=== PATIENT | female | born 2005 ===

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

== ENCOUNTER → 2024-10-05 10:21 | Outpatient (BNV) | payer OTHER, SELFPAY ==
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
== END ==
PROVIDERS: Visit Provider Nurse Practitioner Family
DX: H92.01 Otalgia, right ear (principal); Z71.89 Other specified counseling; Z59.819 Housing instability, housed unspecified; Z91.49 Other personal history of psychological trauma, not elsewhere classified
CPT/HCPCS: 99213

== ENCOUNTER → 2024-10-13 09:40 | Outpatient (BNV) | payer OTHER, SELFPAY ==
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
== END ==
PROVIDERS: Visit Provider Nurse Practitioner Family
DX: R51.9 Headache, unspecified (principal); T74.91XA Unspecified adult maltreatment, confirmed, initial encounter; Z59.819 Housing instability, housed unspecified; Z71.89 Other specified counseling; Z91.49 Other personal history of psychological trauma, not elsewhere classified; M79.601 Pain in right arm; M79.602 Pain in left arm
CPT/HCPCS: 99215

== ENCOUNTER → 2024-10-20 10:34 | Outpatient (BNV) | payer OTHER, SELFPAY ==
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
== END ==
PROVIDERS: Visit Provider Nurse Practitioner Family
DX: S69.91XA Unspecified injury of right wrist, hand and finger(s), initial encounter (principal); Z59.819 Housing instability, housed unspecified; Z91.49 Other personal history of psychological trauma, not elsewhere classified; Z71.89 Other specified counseling
CPT/HCPCS: 99214

== ENCOUNTER → 2024-12-23 10:33 | Outpatient (BNV) | payer OTHER, SELFPAY ==
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
== END ==
PROVIDERS: Visit Provider Nurse Practitioner Family
DX: F33.1 Major depressive disorder, recurrent, moderate (principal); F41.9 Anxiety disorder, unspecified; Z71.89 Other specified counseling; R44.0 Auditory hallucinations; Z91.49 Other personal history of psychological trauma, not elsewhere classified; Z87.898 Personal history of other specified conditions; Z62.810 Personal history of physical and sexual abuse in childhood
CPT/HCPCS: 99215